=== PATIENT | female | born 1975 | race Caucasian/White ===

== ENCOUNTER 2022-09-01 09:16 | Outpatient (CLI) | payer OTHER, SELFPAY ==
--- NOTE | 2022-09-01 08:15 | DI.RAD_ITS ---
Exam(s) XR WRIST RT COMPLETE EXAM: XR WRIST RT COMPLETE CLINICAL HISTORY: Right wrist pain. TECHNIQUE: 2D digital imaging was performed of the right wrist. Three views were obtained. PA, lat eral and oblique views were obtained. COMPARISON: No exams were available for comparison FINDINGS: BONES: No acute fracture is present. No bony destructive lesion is seen. JOINTS: The carpal bones are normally aligned. The joint spaces are well maintained. SOFT TISSUE: Normal. IMPRESSION: Unremarkable radiographs of the right wrist. DATA REPOSITORY: RADIATION DOSE DELIVERED:
== END 2022-09-01 09:17 | disposition home or self-care (01) ==
LOC: DIORS 09:18
PROVIDERS: Visit Provider Physician Assistant
DX: M25.531 Pain in right wrist (principal)
CPT/HCPCS: 73110

== ENCOUNTER 2024-06-07 00:58 | Outpatient (CLI) | payer OTHER, SELFPAY ==
--- NOTE | 2024-06-07 15:15 | DI.MRI_ITS ---
Exam(s) MR UPPER JOINT RT WO EXAM: MR UPPER JOINT RT WO CLINICAL HISTORY: PAIN,GANGLION CYST RT WRIST,M67.431. TECHNIQUE: Multiplanar multisequence MRI was performed. COMPARISON: None. FINDINGS: BONES: There is no fracture nor bone contusion. No significant ulnar variance. No evidence of avasc ular necrosis of the carpal row bones.. There is a benign nonexpansile cyst in the mid capitate bone measuring 3.5 x 4.0 mm. There is no bone edema around this benign capitate cyst. There are no othe r cysts in the carpal row bones and there are no erosions. JOINTS: The 1st carpometacarpal joint appears unremarkable. Scaphoid lunate distance and inter osseo us ligaments are intact. SOFT TISSUES: On the lateral aspect of the wrist there is a prominent multi-septated ganglia on cyst which starts just distal to Della's tubercle and extends distally towards the level the 1st carpomet acarpal joint, exhibiting total longtitudinal length of approximately 3 cm. Maximum width is 1.7 cm. Total cephalocaudal length is from the dorsal aspect of the rectus to the volar aspect of the wrist and measuring approximately 3.4 cm. This is entirely cystic with no solid components. It is intima tely associated with the 1st extensor or compartment, being interposed between the radial styloid/lat eral aspect of the scaphoid and the abductor pollicis longus and extensor pollicis brevis tendons. There is mild relatively focal tenosynovitis in the 2nd extensor or compartment involving the extenso r or carpi radialis longus and brevis tendons. There are no tears of these tendons. Other extensor te ndons appear unremarkable. TENDONS: Flexors: Unremarkable. No tears nor tenosynovitis. Carpal tunnel appears unremarkable. Extensors: As above. MUSCLES: Unremarkable. MEDIAN NERVE: Unremarkable on this noncontrast examination. LIGAMENTS: Unremarkable. TRIANGULAR FIBROCARTILAGE: Unremarkable. There are no tears. there is no significant fluid in the dis kaley radioulnar joint. OTHER: IMPRESSION: There is a large septated para-articular ganglion cyst on the lateral aspect of the wrist as describe d above and measuring approximately 3 x 1.7 x 3.4 cm. DATA REPOSITORY:
== END 2024-06-07 01:18 ==
LOC: DI 01:03
PROVIDERS: Visit Provider Student in an Organized Health Care Education/Training Program
DX: M67.431 Ganglion, right wrist (principal)
CPT/HCPCS: 73221

== ENCOUNTER 2024-06-28 13:49 | Day surgery (SDC) | payer OTHER, SELFPAY ==
[2024-06-28 14:19] VITALS: BP 105/71; PULSE 61; RESP 20; TEMP 36.7; O2SAT 100
[2024-06-28] MEDS: Lactated Ringers 1,000 ML 80 ML IV (15:00)
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
[2024-06-28 15:15] VITALS: BMI 25.4
[2024-06-28] MEDS: Celecoxib 200 MG CAP 400 MG PO (15:59)
[2024-06-28] MEDS: Acetaminophen 500 MG TAB 1000 MG PO (15:59)
--- NOTE | 2024-06-28 16:10 | W.PM.DSUDISC ---
Date of service: 06/28/24 Discharge Plan Disposition Patient Disposition: Home Condition: Good Discharge Details Reason For Visit: Right DeQuervain's and dorsal wrist cyst Attending Provider: Miah Flynn Primary Care Provider: None,None Home Meds and New Rx's Prescriptions: New hydrocodone-acetaminophen 5-325 mg tablet 1 tab PO Q6H PRN (Reason: severe pain) Qty: 6 0RF Rx Instructions: Take one tablet up to every 6 hours as needed for severe postoperative pain acetaminophen 500 mg tablet 500 mg PO Q6H PRN (Reason: pain) Qty: 60 2RF ibuprofen 600 mg tablet 600 mg PO TID PRN (Reason: pain) Qty: 60 0RF Discontinued ibuprofen 600 mg tablet 600 mg PO Q6H PRN Discharge Instructions Additional Instructions: Dequervain's and Cyst Excision Discharge Instructions Activity: You should keep the hand elevated as much as possible for the first few days. You may use the other fingers as tolerated but avoid trying to do too much too soon. You may perform light activities with the splint in place. Dressing/Cast: Your splint should stay in place at all times. Do NOT get it wet. You may loosen the POOJA wrap if you feel it is too tight and then rewrap more loosely. Medications: - You should take Tylenol and Ibuprofen for baseline pain control. - You have Hydrocodone for breakthrough pain. - You may apply ice over the thumb. Follow-up: 7-10 days Referrals: Miah Flynn MD [ [facility] STAFF PHYSICIAN] - Equipment/Supplies: Splint Activity:: Elevate Remove Dressings/Wound Care:: Do Not Remove Shower/Bathe:: Cover Diet:: As Tolerated Discharge Orders Discharge Orders: Discharge Order (Routine); Ordered 06/28/24 Ordered By: Janette Matias
[2024-06-28] MEDS: ceFAZolin 2 GM/50 ML BAG IVPB (16:28)
--- NOTE | 2024-06-28 16:32 | ROE_ITS ---
Operative Note Operative Note PRE-OP DIAGNOSIS: Right Radial Wrist Cyst Right DeQuervain's Tenosynovitis POST-OP DIAGNOSIS: same PROCEDURE: Right First Extensor Compartment Release and Wrist Cyst Excision SURGEON: Miah Flynn ANESTHESIA TYPE: General:No Airway Refer to Anesthesia Record ESTIMATED BLOOD LOSS: 0 PATHOLOGY: none sent TOURNIQUET TIME: 10 COMPLICATIONS: None Patient was transported to: same day Patient's condition: stable Indications: Fatemeh is a 48 year old female who has had symptoms of Dequervain's tenosynovitis initially and then developed a large cyst about the radial aspect of the wrist and the first extensor compartment. Nonoperative treatment options had been trialed. Given their failure, I offered operative intervention. I reviewed the technical details of a first extensor compartment release. I reviewed the risk of the procedure to include bleeding, infection, pain, stiffness, tendon instability, damage to the superficial radial nerve, and complete release. Despite these risks, the patient elected to proceed. Findings: There was a tightened first excessive compartment. There is a multilobular cyst deep to the first sensor compartment tendons, and communication with the radiocarpal joint. The cyst was quite large extending both palmarly and dorsally. The cyst was decompressed and cyst capsule was removed. Arthrotomy was performed the cyst origin adjacent to the radial side of the radial scaphoid joint. Procedure Description: Fatemeh was greeted in the preoperative holding area. Name and surgical site were confirmed. The history and physical was completed. The consent was reviewed the patient and signed. She was taken back to the operating room. The patient was placed in the supine position and monitored anesthesia care was initiated. The right was then prepped with ChloraPrep and draped in a standard fashion after a nonsterile tourniquet was placed high up onto the arm. Prophylactic antibiotics in the form of cefazolin were administered. A timeout was performed for safe surgery. The surgical site was drawn on the skin. The planned surgical field was anesthetized with 1% lidocaine with epinephrine. The limb was exsanguinated and the tourniquet was inflated where it stayed for 10 minutes. A 2 cm incision was made longitudinally over the radial styloid. The skin was incised only. The deep tissue subcutaneous fat was dissected with a tenotomy scissors trying to protect bridge of the superficial radial nerve. Any branches that were identified were retracted out of the way. The first compartment extensor tendons were then identified. The distal aspect of the first compartment was noted and were released. There was a notable kink in the tendon as it left the first extensor compartment. This was improved after the release. This release was performed more on the dorsal side to prevent tendon subluxation. The entirety of the first extensor compartment was then released. The slips of the abductor pollicis longus tendon were inspected. They were moved to confirm the appropriate motion of the thumb. The extensor pollicis brevis tendon was then identified. It was fully released. Traction on the tendon was also used to confirm appropriate extension of the thumb confirming the release of the a ppropriate tendon. The dorsal radial surface of the radius was once again inspected to make sure there is no other sub-compartments or other restrictions to tendon motion. The cyst capsule was these identifiable deep to these tendons. The tendons were retracted out of the way to expose the lateral aspect of the cyst. The cyst capsule was identified and dissected out as it extended palmarly, dorsally and to the base of the first metacarpal. The cyst capsule then deflated and a significant cystic fluid was removed. The cyst capsule was then resected using a rongeur. The cyst was in communication with the radiocarpal joint and the radial aspect of the wrist joint. Arthrotomy was performed this area. Debridement was performed of the dorsal soft tissues care was taken not to debride palmarly with crossing branch of the radial artery. The tourniquet was then released. There was some minor ooze but no arterial bleeding. Pressure was held on the wound for a few minutes and the ooze had stopped completely. The wound was then thoroughly irrigated. The deep tissue was closed with a 3-0 Vicryl. The skin was closed with a running subjective 4-0 Monocryl. Skin glue was applied. The hand was dressed with 4 x 4's, Kerlex and POOJA wrap into a soft thumb spica splint. All counts were correct. Patient was transferred back to day surgery area in stable condition. Date of Procedure: 06/28/24
[2024-06-28] MEDS: Lidocaine 1% Multi-Dose W/EPI 1/100,000 50 ML VIAL (16:50)
[2024-06-28 17:05] VITALS: BP 110/77; PULSE 56; RESP 16; TEMP 36.3; O2SAT 100
--- NOTE | 2024-06-28 17:27 | W.ANESPOSTOP ---
Postoperative Evaluation Date, Time and Location Date Performed: 06/28/24 Time Performed: 17:27 Patient Location: Day Surgery Unit Vital Signs Most Recent Imported Vital Signs: Most Recent Vital Signs Temp Pulse Resp BP Pulse Ox 36.7 C 61 20 105/71 100 06/28/24 14:19 06/28/24 14:19 06/28/24 14:19 06/28/24 14:19 06/28/24 14:19 Assessment Mental Status: Awake (Alert & Oriented to Patient Baseline) Airway and Respiratory Function: Patent airway with normal (patient baseline) respiratory exam Cardiovascular Function: Hemodynamically Stable Hydration Status: Adequately Hydrated Nausea & Vomiting: No Nausea or Vomiting Pain: Pt. Denies Any Pain Peripheral Nerve Block: Patient did not receive a nerve block
[2024-06-28 17:48] VITALS: BP 94/69; PULSE 62; RESP 16; TEMP 36.3; O2SAT 99
== END 2024-06-28 18:15 | disposition home or self-care (01) ==
PROVIDERS: Visit Provider Student in an Organized Health Care Education/Training Program
PROC: (CPT 25000; 2024-06-28 15:15)
DX: M65.4 Radial styloid tenosynovitis [de Quervain] (principal); M67.431 Ganglion, right wrist
CPT/HCPCS: 25111; 25000; 81025; J0690; J2004; J2250; J2704

== ENCOUNTER 2024-08-04 00:38 | Outpatient (CLI) | payer OTHER, SELFPAY ==
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
== END 2024-08-04 00:58 ==
PROVIDERS: Visit Provider Nurse Practitioner Family
DX: S67.22XD Crushing injury of left hand, subsequent encounter (principal); M79.642 Pain in left hand; W23.0XXD Caught, crushed, jammed, or pinched between moving objects, subsequent encounter; Y92.69 Other specified industrial and construction area as the place of occurrence of the external cause
CPT/HCPCS: 73218

== ENCOUNTER 2024-12-06 11:27 | Outpatient (CLI) | payer OTHER, SELFPAY ==
--- NOTE | 2024-12-06 06:45 | DI.MRI_ITS ---
Exam(s) MR UPPER JOINT RT WO EXAM: MR UPPER JOINT RT WO CLINICAL HISTORY: rt wrist pain,m25.531. TECHNIQUE: Multiplanar multisequence MRI was performed. COMPARISON: None. FINDINGS: BONES: There is no fracture nor bone contusion. No evidence of vascular necrosis of the carpal row bones. There is a benign nonexpansile cyst in the proximal half of the capitate bone again noted, unchanged. JOINTS: The radiocarpal joint is unremarkable. The carpal joints are unremarkable. Scapholunate distance is normal. No significant ulnar variance. SOFT TISSUES: There has been interval surgery on the previously described large ganglion cyst on the lateral aspect of the wrist. This has significantly decreased in size and a there is no persistent component between the radial styloid/lateral aspect of the scaphoid and the abductor pollicis longus/extensor pollicis brevis tendons. These tendons appear intact with no abnormal signal nor tenosynovitis. However, more dorsally there is still a remaining (but slightly smaller) component of the ganglion cyst interposed between the extensor or carpi radialis longus and brevis tendons and the trapezium-trapezoid bones of the distal carpal row. Measurement of the remaining ganglia on cyst at this level is approximately 1.4 cm wide by 0.7 cm AP by 0.4 cm maximum thickness. There are no significant focal findings on the opposite-palmar aspect of the wrist. The carpal tunnel contents including the median nerve appear unremarkable. Ulnar collateral ligament of the thumb appears unremarkable. Only mild degenerative changes noted in the 1st carpometacarpal joint. No effusion at this level nor subarticular degenerative cysts. TRIANGULAR FIBROCARTILAGE: No significant tear OTHER: IMPRESSION: Compared to the prior MRI scan of May 2024 there has been significant decrease in the size of the previously described large ganglion cyst on the lateral aspect of the wrist. However, there is still a smaller remaining component located dorsally between the extensor or carpi radialis longus and brevis tendons and the dorsal aspects of the distal carpal row at this level. There is no abnormal intraosseous signal. DATA REPOSITORY:
== END 2024-12-06 11:47 ==
LOC: DI 11:27
PROVIDERS: Visit Provider Student in an Organized Health Care Education/Training Program
DX: M25.531 Pain in right wrist (principal)
CPT/HCPCS: 73221

== ENCOUNTER 2024-12-22 09:17 | Outpatient (CLI) | payer OTHER, SELFPAY ==
[2024-12-22 09:35] VITALS: BP 105/71; PULSE 74; RESP 18; TEMP 36.5; O2SAT 99
[2024-12-22 10:27] VITALS: PULSE 77; O2SAT 100
[2024-12-22 10:30] VITALS: PULSE 74; O2SAT 100
--- NOTE | 2024-12-22 10:36 | PDOC.PAIN ---
Date of service: 12/22/24 Time of Service: 10:36 Pain Managment Procedure Note Procedure Note Procedure Note: ULTRASOUND GUIDED LEFT Ulnar nerve block Pre-Procedural Evaluation: Fatemeh Prado has been referred to the [facility] for an Ultrasound Guided left ulnar nerve block for a chief complaint of left ulnar neuropathy, ICD-10 G56.2. Pre-procedure Pain Score: 5/10 Patient was interviewed and the medical record reviewed. There were no medical, pharmacologic, radiographic, or other structural contraindications to preforming an ultrasound guided injection. Risks and expected side effects as well as potential benefits of the procedure were reviewed. The patient consent form was signed and witnessed. Standard time-out procedure was performed. The use of direct ultrasound visualization of the needle (rather than a non-guided injection) was required to increase patient safety by excluding inadvertent intramuscular, intratendinous, or intraneural needle placement and minimizing bleeding by avoiding osteochondral or vascular injury from the needle. Additionally, the increased accuracy of placement may increase clinical effectiveness and will allow higher diagnostic specificity when evaluating effectiveness of this injection. Procedure Description: The patient was placed in the Supine position and automated blood pressure cuff and pulse oximeter applied for monitoring during the procedure and recorded in the medical record. Pre-injection ultrasound scanning of the area of interest was performed using linear transducer, identifying relevant anatomy, landmarks, and neurovascular structures allowing for optimal needle path. The site was then prepared in the usual sterile fashion, using thorough Chlorhexadine preparation of the skin and sterile draping. The same ultrasound transducer was then passed into the sterile field using sterile probe cover and sterile ultrasound gel. The injection target was again visualized. Skin and subcutaneous tissues were anesthetized with 2 mL of 1% Lidocaine. A 25 guage needle 1.5 inch needle was placed under live ultrasound guidance, using an in-plane approach, to the target area. After visualization of the needle tip at the target area, 1 cc of depomedrol (40 mg/cc) and this was flushed with 4 cc of 0.25% Bupivacaine was injected after negative aspiration for blood. Ultrasound images were captured and stored for documentation purposes. Post-procedure Pain Score:3/10 Vital signs were stable throughout the procedure and were as recorded in the docflowsheet by the nursing staff. Follow up plans and appointments were discussed with the patient.Post procedure instruction was given as documented in nursing documentation and having met discharge criteria, they were discharged from the [facility] Management [facility]. COMMENTS: She tolerated the procedure well. Curly Conklin DO, MPH [facility]-Pain Management [facility] Coding Conscious Sedation used for procedure: No CPT Codes: Suprascapular Nerve - 08291 ([id number] ~G) Additional Codes: Date of Service (82391) Date of service: 12/22/24 Diagnoses: Left Ulnar neuropathy
[2024-12-22] MEDS: Bupivacaine 0.25% Pres-Free 30 ML VIAL IJ (10:43)
[2024-12-22] MEDS: Nerve Block Tray 1 EACH MC (10:43)
[2024-12-22] MEDS: Lidocaine 2% Pres-Free 5 ML VIAL IJ (10:44)
[2024-12-22] MEDS: methylPREDNISolone ACETATE 40 MG/ML VIAL IJ (10:44)
== END 2024-12-22 09:18 | disposition home or self-care (01) ==
LOC: PC 09:18
PROVIDERS: Visit Provider Preventive Medicine Occupational Medicine
DX: G56.22 Lesion of ulnar nerve, left upper limb (principal)
CPT/HCPCS: 64418; J0665; J1010